=== PATIENT | female | born 1975 | race Caucasian/White ===

== ENCOUNTER 2024-10-11 11:10 | Outpatient (CLI) | payer OTHER | END 2024-10-11 11:19 | disposition home or self-care (01) | LOC: MRI 11:10 | PROVIDERS: ATTEND General Practice | DX: E22.1 Hyperprolactinemia (principal) | CPT/HCPCS: 70553 ==

== ENCOUNTER 2024-11-09 14:22 | Outpatient (CLI) | payer OTHER | END 2024-11-09 14:35 | disposition home or self-care (01) | LOC: MAMO-SONO 14:22 | PROVIDERS: ATTEND General Practice | DX: N64.4 Mastodynia (principal); Z12.31 Encounter for screening mammogram for malignant neoplasm of breast; E04.1 Nontoxic single thyroid nodule ==